=== PATIENT | female | born 1985 | race Caucasian/White ===

== ENCOUNTER 2023-10-01 19:56 | Emergency (ER) | payer MEDICAID, OTHER, SELFPAY ==
[2023-10-01 19:57] VITALS: BP 150/115; PULSE 115; RESP 18; TEMP 36.4; O2SAT 98; BMI 35.5
[2023-10-01 20:12] VITALS: BP 150/115; PULSE 121; RESP 20; O2SAT 98
--- NOTE | 2023-10-01 20:37 | ED_ITS ---
Discharge Plan Disposition Patient Disposition: Home, Self-Care Prescriptions Prescriptions: New nitrofurantoin monohyd/m-cryst 100 mg capsule 100 mg PO BID 5 Days Qty: 10 0RF Rx Instructions: must administer with a meal/food Referrals Follow up/Referrals: Provider,Referral, MD [Primary Care Provider] - See instructions Clinical Impressions Clinical Impression: Urinary tract infection Instructions Patient Instructions: DI for Urinary Tract Infection (UTI), DI for Urinary Tract Infection in Children Discharge ED Provider: Reyes Lu General Adult HPI General Chief complaint: Urogenital-Female Stated complaint: frequency, burning Time Seen by Provider: 10/01/23 20:33 Mode of Arrival: Ambulatory Source of Information: Patient Limitations: No Limitations Description of Symptoms (Recalled from ER Triage Doc. by RN): Pt presents with concerns for UTI. Pt states she has some burning, pain and pressure with urination. History of Present Illness HPI narrative: Is a 38-year-old female presents today with urinary urgency and pressure and some burning with urination feels like she has a urinary tract infection when she had the past. Denies any back pain or fevers. No nausea vomiting or diarrhea. Patient states that she has been fixed and that it is not possible that she is . Denies any past medical history or any antibiotic allergies. Related Data Previous Rx's Medication Instructions Recorded nitrofurantoin 100 mg PO BID 5 days #10 caps 10/01/23 monohydrate/macrocrystals 100 mg capsule Allergies Allergy/AdvReac Type Severity Reaction Status Date / Time No Known Allergies Allergy Verified 10/01/23 20:51 [facility] Disclaimer: The information contained in this section may have been updated after the patient was seen, as this information can be updated by other users. Social History Smoking Status: Unknown if ever smoked alcohol intake: never current occupational status: other Travel in the last 8 weeks: None ROS Obtained: Yes All systems reviewed & no additional complaints except as documented Physical Exam General General appearance: alert Respiratory Respiratory exam: Present normal lung sounds bilaterally Cardiovascular Cardiovascular exam: Present regular rate Abdominal Exam Abdominal exam: Absent tenderness Back Exam Back exam: Absent CVA tenderness (R) or CVA tenderness (L) Neurological Exam Neurological exam: Present alert Medical Decision Making Inderjit Inquiry Pt receiving controlled substance: No Vital Signs: 10/01/23 19:57 10/01/23 20:12 Temperature 97.6 F Temperature Source Oral Pulse Rate 121 H Pulse Rate [Left] 115 H Respiratory Rate 18 20 Blood Pressure 150/115 H Blood Pressure [Right Radial Artery] 150/115 H Blood Pressure Mean 126 Blood Pressure Mean [Right Radial Artery] 126 Blood Pressure Source [Right Radial Artery] Automatic Cuff Blood Pressure Position [Right Radial Artery] Sitting 02 Sat by Pulse Oximetry 98 98 Oxygen Delivery Method Room Air Room Air Lab Data Lab results reviewed: Yes I reviewed the patient's lab results. Lab Results 10/01/23 20:10: Urine Color Yellow, Urine Appearance Sl cloudy, Urine pH 6.0, Ur Specific [place] >= 1.030, Urine Protein 1+, Urine Glucose (UA) Negative, Urine Ketones Trace, Urine Blood 2+, Urine Nitrate Negative, Urine Bilirubin Negative, Urine Urobilinogen 0.2, Ur Leukocyte Esterase Trace, Urine HCG, Qual Negative Orders (Tests/Meds): ORDERS Category Date Time Status UA [Urinalysis and Microscopic] Stat Lab 10/01/23 20:10 Results Urine , HCG Qual. Stat Lab 10/01/23 20:10 Completed Medical Decision Narrative: Patient is a 38-year-old female who has signs and symptoms of what appears to be cystitis she was tachycardic upon arrival but it was this was taken shortly after she walked in will reassess she does not appear to be septic she has no CVA tenderness has no fever at the moment holding off on any further intervention regarding the vital sign abnormality. Urinalysis and urine test have been ordered will reassess. Patient's urinalysis is consistent with urinary tract infection nitrofurantoin was sent to [facility] pharmacy. Return precautions discussed and she was discharged in stable condition Critical Care Critical Care Time Critical Care Time: No
[2023-10-01 20:41] LABS: Microscopic, Urine URINE MICROSCOPIC (MICROSCOPIC)
[2023-10-01 20:50] LABS: Appearance,Urine SL CLOUDY (Clear); Bilirubin,Urine Negative (Negative); Blood, Urine 2+ (Negative); Color,Urine YELLOW (Yellow); Glucose,Urine (UA) Negative (Negative); Ketones,Urine TRACE (Negative); Leukocyte Esterase,Urine TRACE (Negative); Nitrate,Urine Negative (Negative); Protein,Urine 1+ (Negative); Specific Gravity, Urine >= 1.030 (1.005-1.030); Urobilinogen,Urine 0.2 EU/dl (0.2)
[2023-10-01 20:51] LABS: Urine Pregnancy, HCG Qual. Negative (Negative)
[2023-10-01 21:08] LABS: Bacteria,Urine Trace /lpf
[2023-10-01 21:10] VITALS: BP 148/98; PULSE 94; RESP 18; TEMP 36.4; O2SAT 98
== END 2023-10-01 21:14 | disposition home or self-care (01) ==
PROVIDERS: Emergency Provider Student in an Organized Health Care Education/Training Program
DX: N39.0 Urinary tract infection, site not specified (principal)
CPT/HCPCS: 81001; 81025; 99283